=== PATIENT | male | born 1955 | race Caucasian/White ===

== ENCOUNTER 2018-06-17 21:26 | Emergency (ER) | payer OTHER ==
[~2018-06-17] VITALS: Ht 167.6 cm; Wt 88.9 kg
[~2018-06-17 21:26] MED LIST: DIABETA5 MG PO; ECO81 PO; LIPI20 PO; LISINOPRIL10 MG PO; METFORMIN HCL1000 MG PO; PRILOSEC20 MG PO; SULFASALAZINE500 MG PO
[2018-06-17 21:32] VITALS: Ht 167.6 cm; Wt 88.9 kg
[2018-06-17] MEDS ORDERED: LANTUS SOLOS100 U/M1 (22:22)
[2018-06-17 22:23] LABS: BASOPHIL % 0.6 % (0-2); PLATELET COUNT 191 x10^3mcL (130-400); RED CELL DISTRIBUTION WIDTH 13.1 % (11.5-14.5)
[2018-06-17 22:48] LABS: ALKALINE PHOSPHATASE 66 U/L (46-116); ALT/SGPT 19 U/L (16-63); AST/SGOT 14 U/L (15-37); BILIRUBIN TOTAL 0.1 mg/dL (0.20-1.00); CALCIUM 8.9 mg/dL (8.5-10.1); CARBON DIOXIDE 25.3 mmol/L (21-32); CHLORIDE SERUM 102 mmol/L (98-107); CREATININE SERUM 1.1 mg/dL (0.7-1.3); GFR1 > 60 mL/min; POTASSIUM SERUM 4.1 mmol/L (3.5-5.1); SODIUM SERUM 136 mmol/L (136-145)
[2018-06-17 22:51] LABS: ALBUMIN 2.7 g/dL (3.4-5.0); TOTAL PROTEIN, SERUM 6.1 g/dL (6.4-8.2)
[2018-06-17 22:57] LABS: GLUCOSE SERUM 478 mg/dL (74-106)
[2018-06-17 23:32] VITALS: BP 163/94
== END 2018-06-17 23:32 | disposition home or self-care (01) ==
LOC: ED 21:26
PROVIDERS: Emergency Medicine
DX: E11.65 Type 2 diabetes mellitus with hyperglycemia (principal); I10 Essential (primary) hypertension
CPT/HCPCS: 82962; J1815; J7030; Q0092